=== PATIENT | male | born 1990 | race Caucasian/White ===

== ENCOUNTER 2020-06-30 00:41 | Emergency (ER) | payer BC ==
[~2020-06-30] VITALS: Ht 188 cm; Wt 105.9 kg
[2020-06-30 01:54] LABS: EOS # 0.2 (0.04-0.40); HEMATOCRIT 46.2 % (42.0-52.0); HEMOGLOBIN 16.1 g/dL (13.5-18.0); MEAN CELL VOLUME 83 fl (78-100); MEAN CORPUSCULAR HEMOGLOBIN 29 pg (27-31); MEAN CORPUSCULAR HGB CONC 35 g/dL (33-37); MEAN PLATELET VOLUME 10.6 fl (7.4-10.4); PLATELET COUNT 244 K/mm3 (130-400); RED BLOOD COUNT 5.55 M/mm3 (4.20-5.60); RED CELL DISTRIBUTION WIDTH 12.9 % (11.5-14.5); WHITE BLOOD COUNT 9.2 K/mm3 (4.8-10.8)
[2020-06-30 01:59] LABS: ALBUMIN 4.7 g/dL (3.5-5.0)
[2020-06-30 02:00] LABS: POTASSIUM 3.7 mmol/L (3.5-5.1)
[2020-06-30 02:01] LABS: CALCIUM 9.9 mg/dL (8.3-10.5)
[2020-06-30 02:02] LABS: TOTAL PROTEIN 7.4 g/dL (6.4-8.3)
[2020-06-30 02:04] LABS: TOTAL BILIRUBIN 0.5 mg/dL (0.2-1.2)
[2020-06-30 07:27] VITALS: BP 124/73
== END 2020-06-30 07:30 | disposition short-term general hospital (02) ==
LOC: ED 00:41
PROVIDERS: Nurse Practitioner Primary Care
DX: K81.0 Acute cholecystitis (principal)
CPT/HCPCS: J0690; J2270; J2405; J3490; J7030; Q9967